=== PATIENT | female | born 1975 | race American Indian/Alaskan Native ===

== ENCOUNTER 2018-08-03 15:24 | Emergency (ER) | payer OTHER ==
--- NOTE | 2018-08-03 15:45 | Emergency Department Report ---
Chief Complaint: Urogenital-Female Stated Complaint: BLADDER INFECTION Time Seen by Provider: 08/03/18 15:42 - HPI History of Present Illness: This is a 43 y.o. female that presents with hematuria and urinary frequency since yesterday. - ROS Review of Systems: hematuria and urinary frequency - Exam Vital Signs: Vital Signs 08/03/18 15:42 Temperature 98.1 F Pulse Rate 89 Respiratory 18 Rate Blood Pressure 150/79 O2 Sat by Pulse 98 Oximetry MSE screening note: Focused history and physical exam performed. Due to findings the following was ordered: Urinalysis and urine hcg. Fast track for further evaluation. ED Disposition for MSE Condition: Stable
[2018-08-03 16:57] LABS: HCG Qualitative,Urine Negative (Negative)
[2018-08-03 16:59] LABS: Bilirubin,Urine NEG (Negative); Blood,Urine LG (Negative); Color,Urine Red (Yellow); Mucus,Urine FEW /HPF; Urobilinogen,Urine < 2.0 mg/dL (<2.0)
[2018-08-03 17:03] LABS: Protein,Urine >500 mg/dL (Negative); RBC,Urine > 182.0 /HPF (0.0-6.0)
[2018-08-03] MEDS ORDERED: BACTRIM DS PO ONE (17:09)
--- NOTE | 2018-08-03 17:13 | Emergency Department Report ---
ED Dysuria HPI - HPI Chief Complaint: Urogenital-Female Stated Complaint: BLADDER INFECTION Time Seen by Provider: 08/03/18 15:42 Duration: 2 Days Location of Discomfort: Suprapubic Severity: Mild Symptoms: Dysuria: Yes, Frequency: Yes, Suprapubic Pain: No, Flank Pain: No, Fever: No, Hematuria: Yes, Abdominal Pain: No, Previous UTI's: No Other History: 43 YO AA female with dysuria for 2 days. perimenopausal. no fever. no cva tenderness. pmh. none. rx. none ED Review of Systems ROS: Stated complaint: BLADDER INFECTION Other details as noted in HPI Comment: All other systems reviewed and negative Constitutional: denies: chills, fever Eyes: denies: eye pain ENT: denies: throat pain Respiratory: denies: cough Cardiovascular: denies: dyspnea on exertion Endocrine: denies: flushing Gastrointestinal: denies: nausea Genitourinary: as per HPI, urgency, dysuria, frequency, hematuria, abnormal menses, other (perimenopausal). denies: discharge Musculoskeletal: denies: back pain Skin: denies: lesions Neurological: denies: headache Psychiatric: denies: anxiety Hematological/Lymphatic: denies: easy bleeding ED Past Medical Hx - Past Medical History Previous Medical History?: No - Surgical History Past Surgical History?: No - Family History Family history: no significant - Social History Smoking Status: Never Smoker Substance Use Type: None - Medications Home Medications: Home Medications Medication Instructions Recorded Confirmed Last Taken Type Sulfamethoxazole/Trimethoprim 1 each PO BID #10 tablet 08/03/18 Unknown Rx [Bactrim DS TAB] Dysuria Exam - Exam General: Vital signs noted. No distress. Alert and acting appropriately. Exam: Yes Moist Mucous Membranes, No CVA Tenderness, No Abdominal Tenderness, No Rigidity or Guarding Labs: Lab Results 08/03/18 Range/Units 16:45 Urine Color Red (Yellow) Urine Turbidity Cloudy (Clear) Urine pH 6.0 (5.0-7.0) Ur Specific [place] 1.027 (1.003-1.030) Urine Protein >500 (Negative) mg/dL Urine Glucose (UA) Neg (Negative) mg/dL Urine Ketones Neg (Negative) mg/dL Urine Blood Lg (Negative) Urine Nitrite Neg (Negative) Ur Reducing Substances Not Reportable Urine Bilirubin Neg (Negative) Urine Ictotest Not Reportable Urine Urobilinogen < 2.0 (<2.0) mg/dL Ur Leukocyte Esterase Tr (Negative) Urine WBC (Auto) 16.0 H (0.0-6.0) /HPF Urine RBC (Auto) > 182.0 (0.0-6.0) /HPF U Epithel Cells (Auto) 2.0 (0-13.0) /HPF Ur Transition Epith Cell 1 /HPF Urine Mucus Few /HPF Urine HCG, Qual Negative (Negative) ED Course Vital Signs 08/03/18 15:42 Temperature 98.1 F Pulse Rate 89 Respiratory 18 Rate Blood Pressure 150/79 O2 Sat by Pulse 98 Oximetry ED Medical Decision Making - Medical Decision Making Labs 08/03/18 16:45 Urine Color Red Urine Turbidity Cloudy Urine pH 6.0 Ur Specific [place] 1.027 Urine Protein >500 Urine Glucose (UA) Neg Urine Ketones Neg Urine Blood Lg Urine Nitrite Neg Ur Reducing Substances Not Reportable Urine Bilirubin Neg Urine Ictotest Not Reportable Urine Urobilinogen < 2.0 Ur Leukocyte Esterase Tr Urine WBC (Auto) 16.0 H Urine RBC (Auto) > 182.0 U Epithel Cells (Auto) 2.0 Ur Transition Epith Cell 1 Urine Mucus Few Urine HCG, Qual Negative Lab Results 08/03/18 Range/Units 16:45 Urine Color Red (Yellow) Urine Turbidity Cloudy (Clear) Urine pH 6.0 (5.0-7.0) Ur Specific [place] 1.027 (1.003-1.030) Urine Protein >500 (Negative) mg/dL Urine Glucose (UA) Neg (Negative) mg/dL Urine Ketones Neg (Negative) mg/dL Urine Blood Lg (Negative) Urine Nitrite Neg (Negative) Ur Reducing Substances Not Reportable Urine Bilirubin Neg (Negative) Urine Ictotest Not Reportable Urine Urobilinogen < 2.0 (<2.0) mg/dL Ur Leukocyte Esterase Tr (Negative) Urine WBC (Auto) 16.0 H (0.0-6.0) /HPF Urine RBC (Auto) > 182.0 (0.0-6.0) /HPF U Epithel Cells (Auto) 2.0 (0-13.0) /HPF Ur Transition Epith Cell 1 /HPF Urine Mucus Few /HPF Urine HCG, Qual Negative (Negative) no fever no cva tenderness preg neg no concern for sti medicated in ER dc home with dc poc Critical care attestation.: If time is entered above; I have spent that time in minutes in the direct care of this critically ill patient, excluding procedure time. ED Disposition Clinical Impression: Acute hemorrhagic cystitis Disposition: DC-01 TO HOME OR SELFCARE Is pt being admited?: No Does the pt Need Aspirin: No Condition: Stable Instructions: Urinary Tract Infection in Women (ED) Additional Instructions: MED ORDERED UNTIL GONE HYDRATE WELL WITH WATER MOTRIN OR TYLENOL FOR PAIN OR FEVER DIET TOLERATED ACTIVITY TOLERATED FOLLOW UP PCP THIS WEEK TO BE SURE IMPROVING referral below Referrals: ASHLEY ROLON MD [Primary Care Provider] - 3-5 Days Time of Disposition: 17:11
[2018-08-03 17:28] VITALS: BP 148/92
== END 2018-08-03 17:27 | disposition home or self-care (01) ==
LOC: ED 15:24
DX: N30.00 Acute cystitis without hematuria (principal)
CPT/HCPCS: 81001; 81025; 99283